=== PATIENT | male | born 1965 | race Caucasian/White ===

== ENCOUNTER 2023-03-17 05:08 | Day surgery (SDC) | payer BC, OTHER ==
[2023-03-15 09:47] VITALS: BMI 32.3
[2023-03-17 09:44] VITALS: TEMP 97.8
[2023-03-17 10:11] VITALS: BP 125/79; PULSE 78; RESP 14
== END 2023-03-17 10:12 | disposition home or self-care (01) ==
LOC: JASU-ENDO 05:08
PROVIDERS: ATTEND Internal Medicine Gastroenterology
PROC: 0DBK8ZX Excision of Ascending Colon, Via Natural or Artificial Opening Endoscopic, Diagnostic (ICD-10-PCS; principal; 2023-03-17 09:00)
DX: Z12.11 Encounter for screening for malignant neoplasm of colon (principal); D12.2 Benign neoplasm of ascending colon; K64.8 Other hemorrhoids; K57.30 Diverticulosis of large intestine without perforation or abscess without bleeding
CPT/HCPCS: 88305-TC

== ENCOUNTER 2023-08-11 05:17 | Day surgery (SDC) | payer BC, OTHER ==
[2023-08-10 08:38] VITALS: BMI 32.9
[2023-08-11] MEDS ORDERED: KETOROLAC TROMETHAMINE 30 MG/1 ML VIAL ONE (13:13)
[2023-08-11] MEDS ORDERED: FENTANYL CITRATE/PF 50 MCG/ML VIAL ONE (13:14)
[2023-08-11 13:53] VITALS: TEMP 97.7
[2023-08-11 14:19] VITALS: BP 122/76
[2023-08-11 14:22] VITALS: PULSE 97; RESP 15
== END 2023-08-11 14:37 | disposition home or self-care (01) ==
LOC: JASU-ENDO 05:17
PROVIDERS: ATTEND Internal Medicine Gastroenterology
PROC: 0DB98ZX Excision of Duodenum, Via Natural or Artificial Opening Endoscopic, Diagnostic (ICD-10-PCS; 2023-08-11)
PROC: 0DB78ZX Excision of Stomach, Pylorus, Via Natural or Artificial Opening Endoscopic, Diagnostic (ICD-10-PCS; 2023-08-11)
PROC: 0DB68ZX Excision of Stomach, Via Natural or Artificial Opening Endoscopic, Diagnostic (ICD-10-PCS; 2023-08-11)
PROC: 06LY8CC Occlusion of Hemorrhoidal Plexus with Extraluminal Device, Via Natural or Artificial Opening Endoscopic (ICD-10-PCS; principal; 2023-08-11 12:00)
DX: K64.2 Third degree hemorrhoids (principal); K29.50 Unspecified chronic gastritis without bleeding; K31.A11 Gastric intestinal metaplasia without dysplasia, involving the antrum
CPT/HCPCS: 88305-TC; 88342-TC